=== PATIENT | male | born 1945 | race Two or more races ===

== ENCOUNTER 2017-12-02 15:54 | Observation (INO) | payer MEDICAID, OTHER ==
[2017-12-02 16:18] LABS: ADD MAN DIFF? NO
[2017-12-02 16:20] LABS: BASOPHIL # 0.1 10^3/ul (0.0-0.1); BASOPHILS % 0.9 % (0.0-2.0); EOSINOPHILS # 0.8 10^3/ul (0.0-0.5); EOSINOPHILS % 8.1 % (0.0-7.0); HEMATOCRIT 35.3 % (42.0-52.0); HEMOGLOBIN 11.2 g/dl (14.0-18.0); LYMPHOCYTES # 3.8 10^3/ul (0.8-2.9); LYMPHOCYTES % 39.1 % (15.0-51.0); MEAN CORPUSCULAR HEMOGLOBIN 25.7 pg (29.0-33.0); MEAN CORPUSCULAR HGB CONC 31.7 g/dl (32.0-37.0); MEAN PLATELET VOLUME 12.1 fl (7.4-10.4); MONOCYTE # 0.5 10^3/ul (0.3-0.9); MONOCYTES % 5.6 % (0.0-11.0); NEUTROPHIL # 4.5 10^3/ul (1.6-7.5); NEUTROPHILS % 46.2 % (39.0-77.0); PLATELET COUNT 177 10^3/UL (140-415); RED BLOOD COUNT 4.36 10^6/ul (4.70-6.10); RED CELL DISTRIBUTION WIDTH 17.5 % (11.5-14.5)
[2017-12-02 16:20] LABS: WHITE BLOOD COUNT 9.7 10^3/ul (4.8-10.8)
[2017-12-02 16:43] LABS: ANION GAP 12 (8-16); BLOOD UREA NITROGEN 19 mg/dl (7-20); CALCIUM 9.3 mg/dl (8.4-10.2); CARBON DIOXIDE 24 mmol/L (21-31); CHLORIDE 107 mmol/L (97-110); CREATININE 1.03 mg/dl (0.61-1.24); GLUCOSE 128 mg/dl (70-220); POTASSIUM 4.3 mmol/L (3.5-5.1); SODIUM 139 mmol/L (135-144)
[2017-12-02 16:55] LABS: B-TYPE NATRIURETIC PEPTIDE 56 PG/ML (0-125)
[2017-12-02 16:56] LABS: TROPONIN-I < 0.010 ng/ml (0.000-0.120)
[2017-12-02] MEDS: ASPIRIN 81 MG TAB PO (17:33)
[2017-12-02] MEDS: SOD CHLORIDE 0.9% 1,000 ML IV (17:34)
[2017-12-02] MEDS ORDERED: NACL 0.9% 3 ML SYG IV (19:00)
[2017-12-02] MEDS ORDERED: GLUCOSE GEL 15 GRAM TUBE BUCCAL ×2 (20:00→20:30)
[2017-12-02] MEDS ORDERED: DEXTROSE 50% 50 ML SYRINGE IV ×4 (20:00→20:30)
[2017-12-02] MEDS ORDERED: GLUCOSE GEL 15 GRAM TUBE PO ×4 (20:00→20:30)
[2017-12-02] MEDS ORDERED: GLUCAGON 1 MG INJ IM ×2 (20:00→20:30)
[2017-12-02] MEDS: INSULIN ASPART [NOVOLOG] 3 ML PEN SC (21:00)
[2017-12-02] MEDS: HYDROCODONE/APAP (5/325) TAB PO (22:10)
[2017-12-02 22:34] LABS: CREATINE KINASE 73 IU/L (23-200)
[2017-12-02 22:47] LABS: CK-MB 0.74 ng/ml (0.0-2.4); TROPONIN-I < 0.010 ng/ml (0.000-0.120)
[2017-12-02] MEDS: morphine 2 MG INJ IV (23:51)
[2017-12-03] MEDS: ACCU-CHEK XX (02:00)
[2017-12-03] MEDS: INSULIN ASPART [NOVOLOG] 3 ML PEN SC ×4 (08:00→21:00)
[2017-12-03 09:19] LABS: CREATINE KINASE 54 IU/L (23-200)
[2017-12-03 09:28] LABS: HEMOGLOBIN A1C 6.4 % (0-5.9)
[2017-12-03 09:32] LABS: CK INDEX 1.3
[2017-12-03 09:33] LABS: CK-MB 0.71 ng/ml (0.0-2.4); TROPONIN-I < 0.010 ng/ml (0.000-0.120)
[2017-12-03] MEDS: REGADENOSON 0.4 MG/5 ML SYG (12:40)
[2017-12-03] MEDS: ASPIRIN 81 MG TAB PO (13:46)
[2017-12-03] MEDS: ENOXAPARIN 40 MG/0.4 ML SYG SC (13:52)
[2017-12-03] MEDS ORDERED: morphine LIQ (10 MG/5 ML) CUP PO (14:30)
[2017-12-04] MEDS: ACCU-CHEK XX (02:00)
[2017-12-04] MEDS: INSULIN ASPART [NOVOLOG] 3 ML PEN SC (08:00)
[2017-12-04] MEDS: ENOXAPARIN 40 MG/0.4 ML SYG SC (08:44)
[2017-12-04] MEDS: ASPIRIN 81 MG TAB PO (08:44)
[2017-12-04 09:34] LABS: HDL CHOLESTEROL 38 mg/dl (31-75); LDL CHOLESTEROL,CALCULATED 55 mg/dl; TRIGLYCERIDES 114 mg/dl (0-149)
[2017-12-04 09:34] LABS: CHOLESTEROL 116 mg/dl (100-200)
== END 2017-12-04 12:04 | disposition home or self-care (01) ==
LOC: MS4 17:15 → E/R 15:54 → MS4 12-03 01:22
DX: R07.9 Chest pain, unspecified (principal); I10 Essential (primary) hypertension; E78.5 Hyperlipidemia, unspecified; E11.40 Type 2 diabetes mellitus with diabetic neuropathy, unspecified; I25.10 Atherosclerotic heart disease of native coronary artery without angina pectoris; Z86.73 Personal history of transient ischemic attack (TIA), and cerebral infarction without residual deficits; Z95.1 Presence of aortocoronary bypass graft
CPT/HCPCS: 36415; 71045; 71250; 78452; 80048; 80061; 82550; 82553; 82962; 83036; 83880; 84484; 85025; 93005; 93017; 96374; 99285-25; G0378